=== PATIENT | female | born 1970 ===

== ENCOUNTER 2021-08-29 15:39 | Emergency (ER) | payer SELFPAY ==
[2021-08-29] MEDS ORDERED: Lidocaine 1% with EPINEPHrine 1:100,000 20 ML MDV INJECT ONE (16:21)
[2021-08-29] MEDS ORDERED: Bacitracin Oint 1 GM U/D Packet TOP ONE (16:21)
[2021-08-29] MEDS ORDERED: Lidocaine/Prilocaine 2.5-2.5% Crm 5 GM Tube TOP ONE (16:21)
[2021-08-29] MEDS ORDERED: Diphtheria,Pertussis(Acell),Tetanus Vaccine 0.5 ML Syringe IM ONE (16:34)
[2021-08-29] MEDS ORDERED: Lidocaine 2% with EPINEPHrine 1:200,000 20 ML SDV ONE (16:57)
[2021-08-29] MEDS ORDERED: Acetaminophen/oxyCODONE 325-5 MG Tab PO ONE (17:53)
== END 2021-08-29 18:35 | disposition home or self-care (01) ==
LOC: DL.ED 15:39
DX: S02.31XB Fracture of orbital floor, right side, initial encounter for open fracture (principal); S02.40CB Maxillary fracture, right side, initial encounter for open fracture; Z23 Encounter for immunization; Z79.899 Other long term (current) drug therapy; W01.198A Fall on same level from slipping, tripping and stumbling with subsequent striking against other object, initial encounter
CPT/HCPCS: 12013; 70486; 90471; 90715; 99283; A9270